=== PATIENT | male | born 1970 | race African-American/Black ===

== ENCOUNTER 2017-05-22 18:18 | Emergency (ER) | payer MEDICARE ==
[2017-05-22] MEDS ORDERED: Acetaminophen 500 MG TAB ONE (18:40)
--- NOTE | 2017-05-22 21:07 | RAD ---
CHEST TWO VIEWS 05/22/17 HISTORY: Cough. COMPARISON: 06/06/15. FINDINGS: Normal cardiac silhouette. Pulmonary vessels and hilum are normal. Costophrenic angles clear. No cons olidation or mass. No pneumothorax or osseous abnormalities. IMPRESSION: No acute cardiopulmonary process. POS: [facility]
== END 2017-05-22 21:05 | disposition home or self-care (01) ==
LOC: ERS 18:18
DX: J10.1 Influenza due to other identified influenza virus with other respiratory manifestations (principal); H91.90 Unspecified hearing loss, unspecified ear; I10 Essential (primary) hypertension; F17.220 Nicotine dependence, chewing tobacco, uncomplicated
CPT/HCPCS: 71046; 87804

== ENCOUNTER 2017-11-27 18:37 | Emergency (ER) | payer MEDICARE ==
--- NOTE | 2017-11-27 19:41 | RAD ---
FOUR VIEWS OF THE RIGHT KNEE 11/27/17 COMPARISON: None. HISTORY: Twisted knee, pain. FINDINGS: There is moderate medial compartment narrowing with associated osteophyte formation. There is a promi nent knee joint effusion. There is patellofemoral joint space narrowing. No displaced fracture or milan dence of dislocation. IMPRESSION: Degenerative joint disease. Prominent knee joint effusion. No displaced fracture or dislocation. Knee joint effusion could be on the basis of radio occult fracture or internal derangement. POS: [facility]
[2017-11-27] MEDS ORDERED: HYDROcodone/Acetaminophen 10/325 mg Tablet ONE (20:00)
== END 2017-11-27 20:30 | disposition home or self-care (01) ==
LOC: ERS 18:37
DX: M25.461 Effusion, right knee (principal); F17.220 Nicotine dependence, chewing tobacco, uncomplicated; I10 Essential (primary) hypertension

== ENCOUNTER 2018-02-25 09:59 | Outpatient (CLI) | payer MEDICARE ==
--- NOTE | 2018-02-25 12:14 | MRI ---
RIGHT KNEE MRI WITHOUT IV CONTRAST: History: 47-year-old male with history of right knee pain and swelling since November. Technique: Multiplanar, multisequence MRI examination of the right knee performed. FINDINGS: There is evidence for a right knee joint effusion with some distention of the suprapatella recess. Th ere is some prominent full thickness fissure involving the patellar cartilage, evidence for chondroma lacia patella. There is also some irregular cartilage loss of the trochanter groove and marked cartil age loss involving the medial compartment cartilage. There is a complex fairly extensive tear involvi ng the medial meniscus including a somewhat displaced tear at the posterior root as well as horizonta l component extending into the posterior horn with some medial subluxation of the meniscus. The later al meniscus is unremarkable. Anterior and posterior cruciate ligaments and collateral ligaments and q uadriceps and patellar tendons appear intact. Minimally dilated popliteal hiatus. No acute osteochond ral defect or significant abnormal marrow signal. IMPRESSION: Fairly extensive complex medial meniscal tear. Abnormal joint effusions with suprapatellar recess dis tension. Cartilage loss of the medial compartment and the femoropatellar compartment. POS: [facility]
== END 2018-02-25 10:00 | disposition home or self-care (01) ==
LOC: BICMRI 09:59
PROVIDERS: ATTEND Orthopaedic Surgery
DX: M25.561 Pain in right knee (principal); M25.461 Effusion, right knee

== ENCOUNTER 2018-04-06 09:38 | Emergency (ER) | payer MEDICARE ==
[2018-04-06] MEDS ORDERED: Ketorolac Tromethamine 60 MG/2 ML VIAL ONE (09:59)
--- NOTE | 2018-04-06 11:55 | RAD ---
LUMBAR SPINE 3 VIEWS: INDICATION: Back pain. FINDINGS: There is mild osteophytosis without compression fracture or subluxation within the lumbar spine. The re is no significant subluxation. IMPRESSION: Mild degenerative change without acute osseous abnormality. POS: [facility]
== END 2018-04-06 10:44 | disposition home or self-care (01) ==
LOC: ERS 09:38
DX: M54.5 Low back pain (principal); I10 Essential (primary) hypertension; F17.220 Nicotine dependence, chewing tobacco, uncomplicated; Z79.899 Other long term (current) drug therapy
CPT/HCPCS: 72100; 96372; J1885

== ENCOUNTER 2018-07-16 11:30 | Outpatient (CLI) | payer MEDICARE ==
--- NOTE | 2018-07-16 13:37 | MRI ---
MRI LUMBAR SPINE NONCONTRAST: History: Back pain radiating down right leg for 10 years. Technique: Multiplanar, multisequence noncontrast enhanced MRI images were obtained of the lumbar spi ne. FINDINGS: T12-L1: Unremarkable. L1-2: There is mild facet hypertrophy. No significant degree of central stenosis is seen. L2-3: There is mild facet and ligamentum flavum hypertrophy. No significant degree of central or neur al foraminal narrowing seen. L3-4: There is mild facet and ligamentum flavum hypertrophy. No significant degree of central or neur al foraminal narrowing seen. L4-5: There is some disc desiccation seen. There is a broad based left L4-5 foraminal disc protrusion which abuts the exiting left L5 nerve root in the neural foraminal region. The right L4-5 neural for amen is patent. L5-S1: Mild left and moderate right sided facet hypertrophy is seen. The central canal and neural for amen are patent. IMPRESSION: 1. Left L4-5 foraminal disc protrusion abutting the exiting left L4 nerve root. POS: [facility]
== END 2018-07-16 11:31 | disposition home or self-care (01) ==
LOC: MRI 11:30
PROVIDERS: ATTEND Neurological Surgery
DX: M51.16 Intervertebral disc disorders with radiculopathy, lumbar region (principal)
CPT/HCPCS: 72148

== ENCOUNTER 2019-12-13 09:06 | Emergency (ER) | payer MEDICARE ==
[2019-12-13] MEDS ORDERED: Ketorolac Tromethamine 30 MG/ML VIAL ONE (10:06)
[2019-12-13] MEDS ORDERED: Amlodipine 5 MG TAB ONE (10:06)
[2019-12-13] MEDS ORDERED: cloNIDine 0.1 MG TAB ONE (10:06)
[2019-12-13 10:10] LABS: #Lymphocytes 1.8 thou/uL (1.20-3.40); #Monocytes 0.5 thou/uL (0.11-0.59); #Neutrophils 6.7 thou/uL (1.40-6.50); %Basophils 0.2 % (0.0-1.0); %Eosinophils 0.5 % (0.0-10.0); %Lymphocytes 19.6 % (21.0-51.0); %Monocytes 5.2 % (0.0-10.0); %Neutrophils 74.5 % (42.0-75.0); Hemoglobin 15.3 g/dL (14.0-18.0); Mean Corpuscular HGB CONC 31.6 g/dL (32.0-36.0); Mean Corpuscular Hemoglobin 27.6 pg (27.0-31.0); Mean Corpuscular Volume 87.2 fL (78.0-98.0); Mean Platelet Volume 8.4 fL (7.4-10.4); Platelet Count 261 thou/uL (130-400); RBC Distribution Width 12.9 % (11.5-14.5); Red Blood Cell (RBC) Count 5.57 mill/uL (4.70-6.10)
[2019-12-13] MEDS ORDERED: Hydrochlorothiazide 25 MG TAB PO SCH (10:15)
[2019-12-13 10:29] LABS: ALT (SGPT) 27 U/L (8-55); AST (SGOT) 23 U/L (5-34); Albumin 4.3 g/dL (3.5-5.0); Alkaline Phosphatase 86 U/L (40-110); Anion Gap 13 mmol/L (10-20); BUN (Urea Nitrogen) 21 mg/dL (8.9-20.6); Bilirubin, Total 0.4 mg/dL (0.2-1.2); Calc. Creatinine Clearance 0 mL/min (70-130); Calcium 9.4 mg/dL (7.8-10.44); Carbon Dioxide 29 mmol/L (22-29); Chloride 101 mmol/L (98-107); Estimated GFR-MDRD Greater than 90; Globulin 3.6 g/dL (2.4-3.5); Glucose 93 mg/dL (70-105); Potassium 3.1 mmol/L (3.5-5.1); Protein, Total 7.9 g/dL (6.0-8.3); Sodium 140 mmol/L (136-145)
[2019-12-13] MEDS ORDERED: Lisinopril 20 MG TAB PO SCH (10:30)
[2019-12-13] MEDS ORDERED: Amlodipine 5 MG TAB PO SCH (10:30)
== END 2019-12-13 13:09 | disposition home or self-care (01) ==
LOC: ERS 09:06
DX: I10 Essential (primary) hypertension (principal); R51 Headache; M25.562 Pain in left knee; E11.9 Type 2 diabetes mellitus without complications; F17.220 Nicotine dependence, chewing tobacco, uncomplicated; Z79.84 Long term (current) use of oral hypoglycemic drugs; Z79.899 Other long term (current) drug therapy
CPT/HCPCS: 36415; 80053; 85025; 93005; 96374; J1885

== ENCOUNTER 2023-03-08 13:31 | Emergency (ER) | payer MEDICARE ==
[2023-03-08] MEDS ORDERED: Ketorolac Tromethamine 30 MG/ML VIAL ONE (16:49)
== END 2023-03-08 17:18 | disposition home or self-care (01) ==
LOC: ERS 13:31
DX: M10.9 Gout, unspecified (principal); M25.571 Pain in right ankle and joints of right foot; I10 Essential (primary) hypertension; E11.9 Type 2 diabetes mellitus without complications; F17.220 Nicotine dependence, chewing tobacco, uncomplicated
CPT/HCPCS: 96372; J1885